=== PATIENT | female | born 1960 | race Caucasian/White ===

== ENCOUNTER 2018-04-19 21:37 | Emergency (ER) | payer BC ==
[~2018-04-19] VITALS: Ht 167.6 cm; Wt 70.8 kg
--- NOTE | 2018-04-19 22:10 | NUR ---
ER MD at bedside for patient evaluation. Family at bedside.
--- NOTE | 2018-04-19 22:33 | NUR ---
Checker Cashier at bedside.
--- NOTE | 2018-04-19 22:33 | NUR ---
Xray at bedside
--- NOTE | 2018-04-19 22:40 | NUR ---
Patient taken to CT via gurney with transporter.
[2018-04-19 22:49] LABS: CARBON DIOXIDE 22 mmol/L (21-32); CHLORIDE 104 mmol/L (98-107); CREATININE 0.9 mg/dL (0.6-1.3); GLUCOSE 144 mg/dL (74-106); POTASSIUM 3.6 mmol/L (3.5-5.1); UREA NITROGEN, BLOOD 16 mg/dL (7-18)
[2018-04-19 22:53] LABS: HEMATOCRIT 37.8 % (31.2-41.9); LYMPHOCYTES # (AUTO) 0.8 K/uL (20.0-40.0); LYMPHOCYTES % (AUTO) 16.5 % (20.5-51.5); MONOCYTES # (AUTO) 0.5 K/uL (2.0-10.0)
[2018-04-19 22:55] LABS: ALANINE AMINOTRANSFERASE 32 U/L (14-59); ALKALINE PHOSPHATASE 180 U/L (50-136); ASPARTATE AMINOTRANSFERASE 85 U/L (15-37); BASOPHILS % (AUTO) 0.3 % (0.0-2.0); BILIRUBIN,DIRECT 1.9 mg/dL (0.0-0.2); BILIRUBIN,TOTAL 3.5 mg/dL (0.2-1.0); EOSINOPHILS % (AUTO) 0.2 % (0.0-7.0); MEAN CORPUSCULAR HEMOGLOBIN 36.3 uug (24.7-32.8); MEAN CORPUSCULAR HGB CONC 34 g/dL (32.3-35.6); MEAN CORPUSCULAR VOLUME 105.9 fL (75.5-95.3); MONOCYTES % (AUTO) 10.6 % (0.0-11.0); NEUTROPHILS # (AUTO) 3.6 K/uL (1.8-8.9); NEUTROPHILS % (AUTO) 72.4 % (38.5-71.5); RED BLOOD CELL COUNT(AUTO) 3.57 MIL/uL (3.63-4.92); TOTAL PROTEIN, SERUM 7.4 g/dL (6.4-8.2); WHITE BLOOD COUNT (AUTO) 4.9 K/uL (3.8-11.8)
[2018-04-19 23:03] LABS: THYROID STIMULATING HORMONE 6.048 mIU/mL (0.358-3.740)
[2018-04-19 23:05] LABS: ACETAMINOPHEN < 2.0 ug/mL (10-30)
--- NOTE | 2018-04-19 23:28 | NUR ---
Patient remains in bed, no acute distress noted. VSS. All patient needs attended and met. Call light is within reach.
[2018-04-19 23:33] LABS: ETHANOL < 3 MG/DL (0-0)
--- NOTE | 2018-04-19 23:40 | NUR ---
RADHA BAE at bedside for patient update.
--- NOTE | 2018-04-19 23:51 | NUR ---
Patient discharged to home in stable conditon. Written and verbal after care instructions given. Patient verbalizes understanding of instructions. Ambulated from Er with stable gait. All belongings with patient. VSS
[2018-04-19 23:52] VITALS: BP 133/81
[2018-04-20 00:05] LABS: LYMPHOCYTES % (MANUAL) 17 % (20-40); MONOCYTES % (MANUAL) 12 % (2-10); NEUTROPHILS % (MANUAL) 71 % (42-75)
[2018-04-20 00:09] LABS: PLATELET COUNT (AUTO) 75 K/uL (179-408)
== END 2018-04-19 23:53 | disposition home or self-care (01) ==
LOC: ER 21:39
DX: R56.9 Unspecified convulsions (principal); F10.10 Alcohol abuse, uncomplicated
CPT/HCPCS: 36415; 70450; 71045; 72125; 80048; 80076; 82140; 84443; 84484; 85025; 85730; 93005; 99285; A4663; G0480 ×2; G0481; 70030-TC